=== PATIENT | female | born 1960 | race Caucasian/White ===

== ENCOUNTER 2018-09-04 10:31 | Emergency (ER) | payer MEDICARE, OTHER ==
[2018-09-04 10:48] VITALS: BP 146/87
--- NOTE | 2018-09-04 11:54 | ER Document Report ---
HPI - HPI Patient complains to provider of: jaw, ear pain, shingles Time Seen by Provider: 09/04/18 11:23 Onset: Other - last friday Onset/Duration: Persistent Quality of pain: Throbbing Severity: Severe Pain Level: 5 Context: Patient presents to the emergency department with complaints of throbbing ear jaw neck pain since last Friday. She reports it started last Friday she felt off balance. She reports that now her right ear hurts her jaw her neck. She denies chest pain shortness of breath. She went to see urgent care on Friday and was prescribed eardrops. She also reports that she is taking Augmentin for sinus infection. She is visiting from [place]. She reports that she was diagnosed with shingles in April and had a refill medication for Valtrex. She contacted her primary care provider who told her to take the antibiotic. She also started to take her Valtrex last night. She is here because she she is in pain. Reports she cannot sleep. She denies fever vomiting nausea diarrhea. Associated Symptoms: None Exacerbated by: Denies Relieved by: Denies Similar symptoms previously: Yes Recently seen / treated by doctor: Yes - EENT EENT: REPORTS: Sore Throat, Ear Pain Past Medical History - General Information source: Patient - Social History Smoking Status: Unknown if Ever Smoked Cigarette use (# per day): No Frequency of alcohol use: None Drug Abuse: None Lives with: Family Family History: None Patient has suicidal ideation: No Patient has homicidal ideation: No Musculoskeletal Medical History: Reports Hx Arthritis, Reports Hx Fibromyalgia, Reports Other - sjorens, lupus Past Surgical History: Reports: Hx Orthopedic Surgery - faisal hips, knee, neck, carpal tunnel, Hx Tubal Ligation Vertical Provider Document - CONSTITUTIONAL Agree With Documented VS: Yes Exam Limitations: No Limitations General Appearance: WD/WN, No Apparent Distress - INFECTION CONTROL TRAVEL OUTSIDE OF THE [place] IN LAST 30 DAYS: No - HEENT HEENT: Atraumatic, Normocephalic. negative: Conjuctival Injection, Pharyngeal Exudate, Pharyngeal Erythema, Tympanic Membrane Red - external canal erythema right, Tympanic Membrane Bulging - NECK Neck: Normal Inspection, Supple. negative: Lymphadenopathy-Left, Lymphadenopathy-Right - RESPIRATORY Respiratory: Breath Sounds Normal, No Respiratory Distress - CARDIOVASCULAR Cardiovascular: Regular Rate, Regular Rhythm - GI/ABDOMEN Gastrointestinal: Abdomen Non-Tender - MUSCULOSKELETAL/EXTREMETIES Musculoskeletal/Extremeties: ANT LI - NEURO Level of Consciousness: Awake, Alert, Appropriate Motor/Sensory: No Motor Deficit - DERM Integumentary: Warm, Dry, Rash Adult Front & Back Diagram: 1 - small circular erythema, flat, no vesicles x 4 one on upper lip, one on right side beside right nare, right upper cheek, above right ear in hair, no vesicles 2 - scattered circular erythema flat ~ 2mm, very few no open wounds no vesicles Course - Re-evaluation Re-evalutation: 09/04/18 11:[address] Romero he advised screening EKG treat for pain instruct patient follow-up with primary care provider upon returning to [place] Friday. Patient updated on plan of care. Patient first declines EKG but agrees after discussion of risks vs benefits - Vital Signs Vital signs: Temp Pulse Resp BP Pulse Ox 97.8 F 79 20 146/87 H 97 09/04/18 10:47 09/04/18 10:47 09/04/18 10:47 09/04/18 10:47 09/04/18 10:47 - EKG Interpretation by Me EKG shows normal: Sinus rhythm Discharge - Discharge Clinical Impression: History of shingles, Jaw pain, Ear pain, right Condition: Stable Disposition: HOME, SELF-CARE Instructions: Oral Narcotic Medication ([facility]), Shingles ([facility]) Additional Instructions: *You have been evaluated for jaw pain, ear pain, otitis externa, history of shingles *Warm compresses to rightear *Take medication as prescribed *Follow up with your primary care provider Friday upon returning to [place] *Return to ED for worsening condition, changes, needs Monitor your blood pressure. Your blood pressure was elevated today. This may be because you were anxious, in pain or because you need medication. It is important to follow up with your primary care provider for full evaluation. Prescriptions: Hydrocodone/Acetaminophen [[place] 5-325 mg Tablet] 1 tab PO QID #15 tablet Forms: Elevated Blood Pressure
--- NOTE | 2018-09-05 00:15 | EKG REPORT ---
SEVERITY:- BORDERLINE ECG - SINUS RHYTHM BORDERLINE T ABNORMALITIES, ANTERIOR LEADS : Confirmed by: Rene Hilton 05-Sep-2018 00:14:41
== END 2018-09-04 12:46 | disposition home or self-care (01) ==
LOC: ER 10:31
DX: B02.9 Zoster without complications (principal); J32.9 Chronic sinusitis, unspecified; R68.84 Jaw pain; H92.01 Otalgia, right ear; M54.2 Cervicalgia
CPT/HCPCS: 93005; 93010; 99283